=== PATIENT | male | born 1950 | race Asian ===

== ENCOUNTER 2021-08-22 08:27 | Outpatient (REF) | payer MEDICARE, SELFPAY ==
[2021-08-22 08:59] LABS: COVID-19 Test Negative (Negative)
== END 2021-08-22 08:28 | disposition home or self-care (01) ==
LOC: HO.LAB 08:27
PROVIDERS: PCP Internal Medicine; Visit Provider Internal Medicine
DX: Z20.822 Contact with and (suspected) exposure to COVID-19 (principal)
CPT/HCPCS: 36415; 87635; C9803

== ENCOUNTER 2024-03-07 16:45 | Emergency (ER) | payer MEDICARE, SELFPAY ==
--- NOTE | ~2024-03-07 | CT_ITS ---
EXAMINATION: CT KNEE WITHOUT CONTRAST, RIGHT CLINICAL INFORMATION: Question plateau fracture COMPARISON: None available. TECHNIQUE: Axial imaging. Sagittal and coronal reconstructions. This CT examination was performed using dose optimization techniques as appropriate, variously including the following: *Automated exposure control *Adjustment of mA and/or kV according to patient size (this includes techniques or standardized protocols for targeted exams where dose is matched to indication/reason for exam; i.e. extremities or head) *Use of iterative reconstruction technique DLP: 195 mGy-cm FINDINGS: Diffuse bone demineralization. Severe medial compartment arthritis, joint space loss, osteophytes, sclerosis. Moderate patellofemoral and lateral compartment arthritis. There are multiple ossifications in the anterior intercondylar region. These appear corticated, suggestive of a nonacute process. This could be related to loose bodies, sequela of remote trauma. No acute fracture plane is identified in the visualized bones. No definitive tibial plateau fracture is seen. Moderate joint effusion. Multiple loose bodies present. The quadriceps and patellar tendon are grossly intact. No measurable muscle tear is identified, however evaluation is limited by CT. Limited evaluation of the ligaments by CT. In particular,, the ACL is not clearly visualized. There is subcutaneous edema present. CT/CT knee RT wo IV con IMPRESSION: *Advanced tricompartment osteoarthritis. *Bones are osteopenic limiting evaluation. No fracture plane is identified by CT. *Ossifications in the anterior intercondylar region, suspected to be nonacute. This may reflect sequela of remote injury or loose bodies. *Moderate joint effusion. Multiple loose bodies. *If there is clinical concern for radiographically osseous osseous injury or intra-articular derangement, consider MRI.
--- NOTE | ~2024-03-07 | MR_ITS ---
EXAMINATION: MR LUMBAR SPINE WITHOUT CONTRAST CLINICAL INFORMATION: Status post fall, concern for cauda equina syndrome COMPARISON: MRI lumbar spine 10/16/2008. TECHNIQUE: MRI of the lumbar spine was obtained using routine sequences without contrast. FINDINGS: Normal lumbar lordosis is preserved. 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 Vertebral body heights are maintained. There is no suspicious osseous lesion. Disc desiccation, most pronounced at L5-S1 with preserved disc height. Level by level detail as follows: L1-L2: No spinal canal or neural foraminal stenosis. L2-L3: Mild bilateral facet hypertrophy. Trace annular disc bulge. No spinal canal stenosis. Stable minimal neural foraminal encroachment. L3-L4: Increased size of right eccentric annular disc bulge. Mild bilateral facet arthrosis. Stable minimal spinal canal narrowing. Increased moderate bilateral neural foraminal stenosis with impingement upon the exiting right greater than left L3 nerve roots. L4-L5: Annular disc bulge with redemonstrated left foraminal disc protrusion and associated annular fissure. New ventral annular fissure. Mild bilateral facet arthrosis and ligamentum flavum thickening. Slightly increased mild to moderate spinal canal and subarticular zone narrowing. Similar mild to moderate left neural foraminal stenosis with mild right neural foraminal narrowing. L5-S1: Posterior disc uncovering and moderate bilateral facet arthrosis with ligamentum flavum thickening. Increased mild spinal canal and severe bilateral subarticular zone narrowing with impingement upon the traversing right greater than left S1 nerve roots. Similar severe right neural foraminal stenosis with compression of the exiting right L5 nerve root and mild left neural foraminal stenosis. The conus medullaris terminates at the level of L1-L2. The distal spinal cord is normal in appearance. No epidural fluid collection, hematoma, or mass. No significant abnormalities of the paraspinal musculature. Bilateral appearing renal cysts not requiring further imaging follow-up. The abdominal aorta is of normal contour and caliber. MR/MR lumbar spine wo con IMPRESSION: 1. No evidence of acute traumatic injury in the lumbar spine nor evidence of cauda equina syndrome. 2. 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 3. At L5-S1, increased mild spinal canal and severe bilateral subarticular zone narrowing with impingement upon the traversing right greater than left S1 nerve roots. Similar severe right neural foraminal stenosis with compression of the exiting right L5 nerve root. 4. At L4-L5, slightly increased mild to moderate spinal canal and subarticular zone narrowing. Similar mild to moderate left neural foraminal stenosis. 5. At L3-L4, increased moderate bilateral neural foraminal stenosis with impingement upon the exiting right greater than left L3 nerve roots.
--- NOTE | 2024-03-07 16:58 | ED.FALL ---
HPI - Fall General Chief Complaint: Fall Stated Complaint: fell and hurt back Time Seen by Provider: 03/07/24 16:46 Source: patient Mode of arrival: ambulatory Limitations: no limitations History of Present Illness ED Provider: danita HPI Narrative: Patient's history of chronic low back pain stable not requiring any pain medication apparently was getting box of grocery the garage lost balance and fell yesterday complaining of increased pain in the lower back and also complaining of pain in the right knee with swelling using a cane for ambulation patient also does have a chronic knee pain in the past Related Data Allergies Allergy/AdvReac Type Severity Reaction Status Date / Time aspirin Allergy Unknown Unknown Verified 03/07/24 17:30 Review of Systems Review of Systems: Yes all other systems are reviewed and are negative [facility] Social History Social History Smoked in Last 30 Days: No Advance Directives: No Advance Directives Information Provided: No Physical Exam Vital Signs: Vital Signs: Last Vital Signs Temp 99.2 F 03/07/24 22:15 Pulse 88 03/07/24 22:15 Resp 13 03/07/24 22:15 BP 128/67 03/07/24 22:15 Pulse Ox 97 03/07/24 22:15 O2 Del Method Room Air 03/07/24 22:15 BMI result Body Mass Index 27.4 Appearance: Alert. Oriented X3. No acute distress. ENT: Pharynx normal. Oral Mucosa moist Neck: Normal inspection. Neck supple. CVS: Normal heart rate and rhythm. Pulses normal. Respiratory: No respiratory distress. Equal air entry bilateral, no wheezing/rales/rhonchi Abdomen: Soft and nontender. Bowel sounds are present, no mass palpable, no CVA tenderness Skin: Skin warm and dry. Normal skin color. Normal skin turgor. Back: Diffuse tenderness lumbar spinal area with SLR positive at 45 sacral sensations intact Extremities: No lower extremity edema. No calf tenderness right knee:effusion+ medial joint line tenderness+ Filipe's positive+ Neuro: Oriented X 3. No motor deficit. No sensory deficit.No cerebellar signs , cranial nerves II-XII intact Medical Decision Making Medical Decision Making MDM Narrative: Patient with significant lumbar canal stenosis findings and right knee arthritis advised to follow with orthopedic Independent Interpretation I performed an independent interpretation of an: CT Scan Radiology Impression Discussion of test interpretation with radiology: I have reviewed the radiologist's reading. Radiologist Impression: MR/MR lumbar spine wo con IMPRESSION: 1. No evidence of acute traumatic injury in the lumbar spine nor evidence of cauda equina syndrome. 2. 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 3. At L5-S1, increased mild spinal canal and severe bilateral subarticular zone narrowing with impingement upon the traversing right greater than left S1 nerve roots. Similar severe right neural foraminal stenosis with compression of the exiting right L5 nerve root. 4. At L4-L5, slightly increased mild to moderate spinal canal and subarticular zone narrowing. Similar mild to moderate left neural foraminal stenosis. 5. At L3-L4, increased moderate bilateral neural foraminal stenosis with impingement upon the exiting right greater than left L3 nerve roots. [place] [id number] CT Scan Report Signed Patient: Bradly García MR#: [id number] : 1950 Acct:[id number] Age/Sex: 73 / M ADM Date: 03/07/24 Loc: .ED Attending Dr: Ordering Physician: Sam Jaeger MD Date of Service: 03/07/24 Procedure(s): CT knee RT wo IV con Accession Number(s): [id number] cc: Marquis Singh; Sam Jaeger MD~ EXAMINATION: CT KNEE WITHOUT CONTRAST, RIGHT CLINICAL INFORMATION: Question plateau fracture COMPARISON: None available. TECHNIQUE: Axial imaging. Sagittal and coronal reconstructions. This CT examination was performed using dose optimization techniques as appropriate, variously including the following: *Automated exposure control *Adjustment of mA and/or kV according to patient size (this includes techniques or standardized protocols for targeted exams where dose is matched to indication/reason for exam; i.e. extremities or head) *Use of iterative reconstruction technique DLP: 195 mGy-cm FINDINGS: Diffuse bone demineralization. Severe medial compartment arthritis, joint space loss, osteophytes, sclerosis. Moderate patellofemoral and lateral compartment arthritis. There are multiple ossifications in the anterior intercondylar region. These appear corticated, suggestive of a nonacute process. This could be related to loose bodies, sequela of remote trauma. No acute fracture plane is identified in the visualized bones. No definitive tibial plateau fracture is seen. Moderate joint effusion. Multiple loose bodies present. The quadriceps and patellar tendon are grossly intact. No measurable muscle tear is identified, however evaluation is limited by CT. Limited evaluation of the ligaments by CT. In particular,, the ACL is not clearly visualized. There is subcutaneous edema present. CT/CT knee RT wo IV con IMPRESSION: *Advanced tricompartment osteoarthritis. *Bones are osteopenic limiting evaluation. No fracture plane is identified by CT. *Ossifications in the anterior intercondylar region, suspected to be nonacute. This may reflect sequela of remote injury or loose bodies. *Moderate joint effusion. Multiple loose bodies. *If there is clinical concern for radiographically osseous osseous injury or intra-articular derangement, consider MRI. Discharge Plan Discharge Clinical Impression: Low back derangement syndrome, Knee derangement syndrome Patient Disposition: Home, Self-Care Instructions: Acute Low Back Pain (ED), Swollen Knee Joint (ED) Additional Instructions: Rest ,avoid going upstairs Tylenol/Motrin for pain Follow up with orthopedic Referrals: Christopher Evangelista MD [Physician] - 1 week Interventions: ED Discharge Assessment Last Done: 03/07/24 21:34 Discharge Date/Time: 03/07/24 21:34 Print Language: Micronesian
[2024-03-07 17:02] VITALS: BP 138/82; PULSE 48; RESP 16; TEMP 36.3; O2SAT 99
[2024-03-07 17:25] VITALS: BP 138/82; PULSE 49; RESP 16; TEMP 36.3; O2SAT 99; BMI 27.4
--- NOTE | 2024-03-07 17:40 | PC.NURSE ---
PT WQAS EVALAUATED BY DR CALHOUN AND WAS MADE AWARE OF THE ED CARE PLAN. PT IS AWAITING RADIOLOGY STUDIES
[2024-03-07 19:44] VITALS: BP 138/74; PULSE 41; RESP 16; TEMP 36.3; O2SAT 99
[2024-03-07 21:27] VITALS: BP 154/82; PULSE 41; RESP 18; TEMP 36.3; O2SAT 100
[2024-03-07 21:34] VITALS: BP 154/82; PULSE 41; RESP 18; TEMP 36.3; O2SAT 100
[2024-03-07 22:15] VITALS: BP 128/67; PULSE 88; RESP 13; TEMP 37.3; O2SAT 97
== END 2024-03-07 21:34 | disposition home or self-care (01) ==
PROVIDERS: Emergency Provider Internal Medicine; PCP Internal Medicine
DX: M53.87 Other specified dorsopathies, lumbosacral region (principal); M23.91 Unspecified internal derangement of right knee; M25.561 Pain in right knee
CPT/HCPCS: 72148; 73700; 99284; 99285

== ENCOUNTER 2024-07-21 11:52 | Day surgery (SDC) | payer MEDICARE, SELFPAY ==
[2024-07-17 14:30] VITALS: BMI 27.3
[2024-07-21] MEDS: Lactated Ringers 1,000 ML 80 ML IVCONT (13:08)
[2024-07-21 13:16] VITALS: BP 149/76; PULSE 46; RESP 18; TEMP 36.8; O2SAT 97
--- NOTE | 2024-07-21 15:15 | P.CONAN_ITS ---
HPI - Anesthesia Eval Consult details Narrative: 74 yo male patient for EGD [facility] Active Problems Active Problems: HTN GERD Hyperlipidemia BPH Past Medical History Medical History Elevated cholesterol GERD (gastroesophageal reflux disease) BPH (benign prostatic hyperplasia) HTN (hypertension) Family History Family history of problems with anesthesia: No Surgical History Surgical History Hx of sinus surgery History of esophagogastroduodenoscopy (EGD) H/O colonoscopy History of Problems with Anesthesia: No Social History Social History Household Members: Spouse Are you a primary critical care physician to a significant other at home: No Do you presently have visiting nurse or other home services: No Patient Tobacco Use Status: Never used Tobacco Have you been hit, kicked, punched, or otherwise hurt by someone within the past year? If so, by whom?: No Are you DNR?: No Advance Directives: No Advance Directives Information Provided: Yes Recently lost weight without trying: No Nutrition Risks: No Nutritional Risk Meds Allergies Allergy/AdvReac Type Severity Reaction Status Date / Time No Known Allergies Allergy Verified 07/21/24 12:58 Active Medications: Current Medications Lactated Ringer's (Lr) 1,000 mls @ 80 mls/hr IVCONT .G12H89H VICTOR MANUEL Last Admin: 07/21/24 13:08 Dose: 80 mls/hr Home Medications ?Medication ?Instructions ?Recorded ?Confirmed ?Last Taken ?Type aspirin 81 mg tablet,delayed 81 mg PO DAILY 07/17/24 07/17/24 07/14/24 History release atenolol 25 mg tablet 25 mg PO DAILY 07/17/24 07/17/24 07/21/24 History pantoprazole 20 mg tablet,delayed 20 mg PO DAILY 07/17/24 07/17/24 Unknown History release rosuvastatin 20 mg tablet 20 mg PO DAILY 07/17/24 07/17/24 Unknown History tamsulosin 0.4 mg capsule 0.4 mg PO DAILY 07/17/24 07/17/24 Unknown History valsartan 160 mg tablet 160 mg PO DAILY 07/17/24 07/17/24 07/21/24 History Exam Height,Weight and Vital Signs: Height 5 ft 7 in Weight 79.152 kg Last Vital Signs Temp 98.2 F 07/21/24 13:16 Pulse 46 L 07/21/24 13:16 Resp 18 07/21/24 13:16 BP 149/76 H 07/21/24 13:16 Pulse Ox 97 07/21/24 13:16 O2 Del Method Room Air 07/21/24 13:16 Airway Mallampati Class: II TM Dist: >3cm Neck ROM: Full Loose/Missing/Broken Teeth: No Heart: RRR Lungs: CTAB Assessment and Plan Assessment Anesthesia Assessment: Anesthesia Plan Discussed and Chart Reviewed Final Anesthetic Review Family History of Problems with Anesthesia: No History of Problems with Anesthesia: No NPO: Yes ASA Class: II Final Preanesthetic Review: No Changes in Pt Med Stat, Meds/Allgs Chart Reviewed, Consent Obtained/Reviewed and Anes Risks/Benef Reviewed Patient Risk: Low Procedure Risk: Low Assessment/Block/Sedation in SS: Assess/Block/Sedation-SS Anesthetic Plan Anesthetic Plan: TIVA Disposition: Standard PACU
[2024-07-21 16:00] VITALS: BP 102/62; PULSE 47; RESP 12; TEMP 36.2; O2SAT 99
--- NOTE | 2024-07-21 16:01 | PM.OP ---
Brief Operative Note Date of Service: 07/21/24 Pre-op diagnosis: GERD, Elise's Post-op diagnosis: other (Same, Hiatal hernia) Procedure: EGD with biopsies Surgeon: Gigi Chong MD Anesthesia: MAC Was an Nursery Laborer used for this Procedure?: No Estimated blood loss (mL): 2.0 Pathology: other (A. Esophagus 36-37cm B. Gastric antrum) Condition: stable Disposition: PACU
[2024-07-21 16:15] VITALS: BP 108/73; PULSE 72; RESP 0; TEMP 36.2; O2SAT 100
--- NOTE | 2024-07-22 02:08 | OP_ITS ---
DATE OF SERVICE: 07/21/2024 SURGEON: Gigi Chong MD INDICATIONS: The patient presents for evaluation of chronic reflux and history of Elise esophagus. Full consent has been obtained from him for this, including risks of bleeding and perforation. PREOPERATIVE DIAGNOSIS: POSTOPERATIVE DIAGNOSIS: PROCEDURE PERFORMED: Esophagogastroduodenoscopy with biopsies. ESTIMATED BLOOD LOSS: COMPLICATIONS: ANESTHESIA: Monitored anesthesia care. ASSISTANTS: SPECIMENS: PREOPERATIVE DIAGNOSES: Gastroesophageal reflux and history of Elise esophagus. POSTOPERATIVE DIAGNOSES: Gastroesophageal reflux and history of Elise esophagus, hiatal hernia, gastritis. DESCRIPTION OF PROCEDURE: The patient was placed in the left lateral decubitus position. The Olympus video gastroscope was passed in the posterior oropharynx and upper esophagus under direct vision. The scope was passed slowly into the distal esophagus. The gastroesophageal junction appeared at 37 cm. Between 36 cm and 37 cm were small patches of what appeared to be Elise mucosa. There was no evidence of any esophagitis nor any lesions. The scope entered the stomach there was a small hiatal hernia. The scope was advanced to the pylorus, and the duodenum was cannulated to the descending portion. The duodenum including the bulb appeared normal without mass or ulceration. The scope was withdrawn back in the stomach. The gastric antrum and body had some changes of what appeared to be a mild chronic gastritis with some erythema and edema but no erosions nor ulceration. There was good peristalsis. Biopsies were obtained. The scope was retroflexed visualizing the proximal stomach carefully, which appeared normal, without any sign of mass or ulceration. The scope was straightened and withdrawn back to the esophagus. Multiple biopsies were obtained between 36 and 37 cm. Proximal to 36 cm, the esophageal mucosa appeared normal. The scope was withdrawn from the patient. He tolerated the procedure well and was returned to the recovery area in stable condition. IMPRESSION: 1. Hiatal hernia, gastroesophageal reflux, history of Elise esophagus. Rule out dysplasia. 2. Gastritis. PLAN: The results of the biopsies will be checked. He reports that he is presently doing well on his daily regimen of pantoprazole. I did advise him to continue this. A tissue specimen has also been sent for the Cypher study as well. He was advised not to use any aspirin or NSAIDs for 1 week. If the biopsies do not show dysplasia, then I would recommend a repeat upper endoscopy in 3 years given his otherwise good clinical health. He had been advised to let me know; if he wants to have a screening colonoscopy, although does report that a recent Cologuard test had been negative. MD ALEXI Velasquez/ALFIE / [phone]
== END 2024-07-21 16:26 | disposition home or self-care (01) ==
PROVIDERS: PCP Internal Medicine; Visit Provider Internal Medicine
PROC: 0DJ08ZZ Inspection of Upper Intestinal Tract, Via Natural or Artificial Opening Endoscopic (ICD-10-PCS; CPT 43235; principal; 2024-07-21 14:30)
DX: K22.70 Barrett's esophagus without dysplasia (principal); K21.9 Gastro-esophageal reflux disease without esophagitis; K29.60 Other gastritis without bleeding; K44.9 Diaphragmatic hernia without obstruction or gangrene; I10 Essential (primary) hypertension; N40.0 Benign prostatic hyperplasia without lower urinary tract symptoms; Z79.899 Other long term (current) drug therapy; Z79.82 Long term (current) use of aspirin; Z98.890 Other specified postprocedural states
CPT/HCPCS: 43239; 88305; 88313; 88342; J1596; J2003; J2704

== ENCOUNTER 2025-07-24 06:28 | Day surgery (SDC) | payer MEDICARE, SELFPAY ==
--- OUTSIDE RECORDS SUMMARY | 2016-11-09 01:00 | XMS_ITS | Encounter Summary ---
Author Organization [facility] Address [address] [address] Phone Care Team Providers Care Philosophy And Religion Instructor Name Role Phone Unavailable Primary Care Provider Unavailabl e Encounter Details Date Type Department Care Team ([facility] st Contact Info) Description 11/09/2016 Hospital Encounter [facility] OUTSIDE [address] [place] [id number] Nick Lebron MD [address] [place] [id number] [email or web address] Social History Tobacco Use Types Packs/Day Years Used Date Smoking Tobacco: Never Assessed Education Answer Date Recorded Are you interested in more education? Not on shelby e 02/03/2023 Are you concerned about learning? Not on file 02/03/2023 No 02/03/2023 No 02/03/2023 Digital Access Answer Date Recorded No 02/18/2023 No 02/18/2023 No 02/18/2023 Reliable internet access at home? Not on file 02/18/2023 Device with a working camera? Not on file Sex and Gender Information Value Date Recorded Sex Assigned at Male 09/26/2021 11:58 AM EST Legal Sex Male 2:49 PM EDT Gender Identity Male 09/26/2021 11:58 AM EST Sexual Orientation Straight 09/26/2021 11 :58 AM EST documented as of this encounter Plan of Treatment Not on file documented as of this encounter Procedures Procedure Name Priority Date/Time Associated Diagnosis Comments CT HEAD OUTSIDE (NO INTERPRETATION) Routine 11/09/2016 12:00 AM EST documented in this encounter Results * CT Head Outside (No Interpretation) (11/09/2016 12:00 AM EST) Narrative [facility] INTERFACES - 10/03/2021 9:41 AM EST This study is for PACS storage only and not for interpretation. us Nick Lebron MD IMG OUTSIDE IMAGING W/OUT I NTERPRETATION Final Result [facility] INTERFACES documented in this encounter Visit Diagnoses Not on filedocumented in this encounter Additional Source Comments The information contained in this document represents components of the legal health record. It is not the complete legal health record.[facility]
--- OUTSIDE RECORDS SUMMARY | 2024-07-21 10:20 | XMS_ITS ---
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 Problem Gastro-esophagea l reflux disease without esophagitis (110198297) Gastro-esophage al reflux disease without esophagitis (K21.9) Active confirmed Problem Gastritis (8982306) Gastritis (K29.70) Active confirmed Encounters Encounter Location Date Provider Diagnosis [facility] Outpatient [address] [place] [phone] 07/21/2024 Gigi Chong Gil''s esophag us without dysplasia K22.70 ; Hiatal hernia K44.9 ; Gastro-esophageal reflux disease without esophagitis K21.9 and Gastritis K29.70 Assessments Encounter Date Diagnosis (ICD Code) Assessment Notes Treatment Notes Treatment Clinical Notes Section Notes 07/21/2024 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 (ICD-10 - K22.70) 07/21/2024 Hiatal hernia (ICD-10 - K44.9) 07/21/2024 Gastro-esophagea l reflux disease without esophagitis (ICD-10 - K21.9) 07/21/2024 Gastritis (ICD-10 - K29.70) Plan Of Treatment Next Appt Details Provider Name:Gigi Chong , 07/24/2025 07:30:00 AM, [address] [place] [address] , [place], [place], [phone], Progress Notes * ROBYN FLORES MDOB:[birth year] (74 yo M)Acc No.[id number]:07/21/2024 EGD/MAC Patient: LEO MADRID MD Provider: Dick Chong MD :1950 A ge:74 Y S ex:Male Date:07/21/2024 Address:[address] [place], [place] [phone] Pcp:BOAZ CHARLES Subjective: * Chief Complaints: * 1 . Gil's. * Medical History: Objective: * Vitals: Assessment: * Assessment: 1. B arrett''s esophagus without dysplasia - K22.70 (Primary) 2 . H iatal hernia - K44.9 3 . G ronni-esophageal reflux disease without esophagitis - K21.9? 4. G astritis - K29.70 Plan: * Treatment: * Procedure Codes: 4 3239 UPPER GI ENDOSCOPY, BIOPSY, 3126F ESOPH BX RPRT W/DYSPL INFO * * The named appointment provid er may or may not be the originator of this progress note, and it is not deemed complete until electronically signed by the appointment provider. Sign off status: Pending * Provider: Dick Chong MD Date: Generated for Ga robles/Nick/Ruiitting on: 0 05/28/2025 01:37 PM EDT
--- OUTSIDE RECORDS SUMMARY | 2025-05-27 23:59 | XMS_ITS | Continuity of Care Document ---
Author Organization [facility] Address [address] [place] [phone]- Care Team Providers Care Publication Specialist Name Role Phone Samantha WORKMAN, Marquis Primary Care Physician [phone] Encounter [facility] Date(s): 04/27/25 - 05/27/25 [facility] [address] [place] [phone]- Attending Physician: Any Parikh Admitting Physician: Any Parikh Referring Physician: Any Parikh Encounter Type: Triage Allergies, Adverse Reactions, Alerts No Known Allergies Immunizations Given and Recorded Vaccine Date Status Refusal Reason Yellow Fever Vaccine 04/03/07 Given Medications Cipro 500 mg oral tablet 500 mg, 1, tablet, By Mouth, Every 12 hours, for severe diarrhea, # 6 tablet, 0 Refills Start Date: 04/03/07 Stop Date: 04/06/07 Status: Ordered Medication Dispense Status: Completed Quantity: 6.0 Unit: tablet Total Allowed Fills: 1 Fills Dispensed: 0 mefloquine 250 mg oral tablet 250 mg, 1, tablet, By Mouth, Every week, begin 2 weeks prior travel into [facility] area; take weekly and continue weekly for 4 weeks after leaving [facility], # 12, 0 Refills Start Date: 04/03/07 Status: Ordered Medication Dispense Status: Completed Quantity: 12.0 Unit: Total Allowed Fills: 1 Fills Dispensed: 0 typhoid vaccine, live oral enteric coated capsule one capsule, By Mouth, Every other day, # 4, 0 Refills Start Date: 04/03/07 Status: Ordered Medication Dispense Status: Completed Quantity: 4.0 Unit: Total Allowed Fills: 1 Fills Dispensed: 0 Social History Social History Type Response Sex Sex Representation Male (finding) Patient Care team information Care Team Personnel Name: Marquis Singh MD Position: [facility] Outreach Member Role: PCP Address: [address] [place] [address], [address] Telecom: Care Team Related Persons Name: STEVE FLORES Insurance Providers Guarantor name: LEO FLORES [facility] Plan Information #: 1 Payer: [facility] PPO Payer Identifier: NA Member Number: [id number] Group Number: [id number] Subscriber Identifier: NA Relationship to Subscriber: self Coverage Type: Medicare PPO Coverage Verification Date: NA Telecom: NA Address:
--- OUTSIDE RECORDS SUMMARY | 2025-05-28 13:37 | XMS_ITS | Patient Health Record ---
Author Organization [facility] Address [address] [place] [phone] Care Team Providers Care Aboriginal Education Worker Coordinator Name Role Phone BOAZ CHARLES Primary Care Provider Gigi Caba [phone] Allergies No Known Allergies Results Component Value Reference Range Notes Pathology Reviewed date:10/16/2024 03:10:26 PM Interpretation: Performing Lab:[address] [id number] Notes/Report: Pathology (Not yet reviewed by provider) Interpretation: Performing Lab:[address] [address] Notes/Report: Reason For Referral No Information Medications Medication SIG (Take, Route, Frequency, Duration) Notes Start Date End Date Status Tamsulosin HCl 0.4 MG Oral for 90 Active Pantoprazole Sodium 40 MG 1 tablet every morning Orally Once a day for 90 days Active Atenolol 25 MG half tablet Oral Onc e a day Active Valsartan 160 MG Oral for 90 A ctive Rosuvastatin Calcium 20 MG Oral for 90 Active Aspir-81 81 MG 1 tablet Orally Once a day Active Immunizations Vaccine Route Administration Date Status Comme nts Influenza Unknown 2018 Administered Problems Problem Type SNOMED Code ICD Code Onset Dates Problem Status W/U Status Risk Notes Problem Gastro-esophagea l reflux disease without esophagitis (897428397) Gastro-esophage al reflux disease without esophagitis (K21.9) Active confirmed Problem 651101334 Barretts esophagus without dysplasia (K22.70) Active confirmed Problem Gastritis (4679662) Gastritis (K29.70) Active confirmed Problem Elise esophagus (015188979) Elise esophagus (K22.70) Active confirmed Problem Elise's esophagus (229319074) 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) Active confirmed Vital Signs Blood pressure diastolic 00 mm Hg 06/17/2024 Height 67 in 06/17/2024 Blood pressure systolic 00 mm Hg 06/17/2024 Weight 174.5 lbs 06/17/2024 BMI 27.33 kg/m2 06/17/2024 Procedures Procedure Date Ordered Date Performed Result Body Sit e UPPER GI ENDOSCOPY 09/11/2024 N/A Encounters Encounter Location Date Provider Diagnosis [facility] [address] [place] [phone] 07/21/2024 Gigi Chong Elise''s esophagus without dysplasia K22.70 ; Hiatal hernia K44.9 ; Gastro-esophageal reflux disease without esophagitis K21.9 and Gastritis K29.70 [facility] [address] [place] [phone] 06/17/2024 Gigi Chong Barretts esophagus without dysplasia K22.70 [facility] [address] [place] [phone] 09/11/2024 Gigi Chong Elise esophagus K22.70 Assessments Encounter Date Diagnosis (ICD Code) Assessment Notes Treatment Notes Treatment Clinical Notes Section Notes 07/21/2024 Hiatal hernia (ICD-10 - K44.9) 07/21/2024 Elise''s esophagus without dysplasia (ICD-10 - K22.70) 06/17/2024 Barretts esophagus without dysplasia (ICD-10 - K22.70) Stop aspirin for 1 week before the upper endoscopy 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 He is not having any new nor worrisome GI complaints. I did recommend a followup upper endoscopy for GERD in regard to his Elise's esophagus given that his last exam was well over 3 years ago. We did review the rationale for that in regard to the theoretical increased risk esophageal cancer in patients with Elise's esophagus. Full consent was obtained for that, including risks of bleeding and perforation. The procedure will be done with monitored anesthesia care. He was advised to stop his aspirin for one week before the procedure. I did advise him to continue his daily pantoprazole as well. I did advise him that I would recommend a screening colonoscopy given his last exam being about 12 years ago. We did review his recent negative Cologuard test and I advised him that while this is felt to be a fairly good screening test, we do feel a colonoscopy would definitely be a better test to detect and remove polyps in regard to colorectal cancer prevention. Nonetheless, he has opted to hold off on the colonoscopy for the time being and will think about it perhaps for sometime next year. Dr. Flores was comfortable with this plan. Thank you again for allowing me to participate in Dr. Flores's care. I shall continue to keep you advised of his progress. 09/11/2024 Elise esophagus (ICD-10 - K22.70) 07/21/2024 Gastro-esophage al reflux disease without esophagitis (ICD-10 - K21.9) 07/21/2024 Gastritis (ICD-10 - K29.70) 06/17/2024 Other Think about having a colonoscopy. 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 He is not having any new nor worrisome GI complaints. I did recommend a followup upper endoscopy for GERD in regard to his Elise's esophagus given that his last exam was well over 3 years ago. We did review the rationale for that in regard to the theoretical increased risk esophageal cancer in patients with Elise's esophagus. Full consent was obtained for that, including risks of bleeding and perforation. The procedure will be done with monitored anesthesia care. He was advised to stop his aspirin for one week before the procedure. I did advise him to continue his daily pantoprazole as well. I did advise him that I would recommend a screening colonoscopy given his last exam being about 12 years ago. We did review his recent negative Cologuard test and I advised him that while this is felt to be a fairly good screening test, we do feel a colonoscopy would definitely be a better test to detect and remove polyps in regard to colorectal cancer prevention. Nonetheless, he has opted to hold off on the colonoscopy for the time being and will think about it perhaps for sometime next year. Dr. Flores was comfortable with this plan. Thank you again for allowing me to participate in Dr. Flores's care. I shall continue to keep you advised of his progress. Plan Of Treatment Pending Test Test Name Order Date UPPER GI ENDOSCOPY 09/11/2024 Pathology 07/21/2024 Future Test Test Name Order Date UPPER GI ENDOSCOPY 05/13/2015 UPPER GI ENDOSCOPY 08/23/2018 UPPER GI ENDOSCOPY 06/17/2024 Next Appt Details Provider Name:Gigi Chong , 07/24/2025 07:30:00 AM, [address] [place] [address] , [place], [place], [phone], Insurance Providers Payer Name Payer Address Payer Phone Subscriber Number Group Number Insured Name Patient Relationship to Insured Coverage Start Date Coverage End Date [facility] [address] [place], [place] [id number] [phone] [id number] MARK WORKMAN, [facility] Self - patient is the insured Medical (General) History Medical History History ICD Code Denies UT,DM,CVA,Lung disease,renal dise ase Negative colonoscopy approx. [address] [facility] [address] Bliss Negative screening colonosco py in July of 2012, other than some mild sigmoid diverticulosis and small internal hemorrhoids EGD 04/2015--small HH, small area of [place] ett's--no dysplasia Hypertension BPH Upper endoscopy in 11/2018 re vealed a small hiatal hernia, some mild esophagitis, and a small area of Elise's esophagus with biopsies negative for dysplasia Surgical History Surgery Date(Month/Year) sinus surgery 1985 & 1989 sinsu surgery 2016
--- OUTSIDE RECORDS SUMMARY | 2025-05-28 13:38 | XMS_ITS | Clinical Summary ---
Author Organization [facility] Address [address] [place] [phone] Phone Care Team Providers Care Bale Piler Name Role Phone Unknown, Unknown MD Primary Care Provider Unavai lable Allergies No known active allergies Medications budesonide (PULMICORT) 0.5 mg/2 mL nebulizer solution Add one vial to [employer] saline irrigation and irrigate nasally daily. 60 mL 2 2 Active Active Problems No known active problems Immunizations Immunization Administration Dates Next Due COVID-19 (Pre-07/16) Moderna Vaccine, mRNA, PF 06/07/2021,10/14/2020,09/16/2020 Social History Tobacco Use Types Packs/Day Years [...] Orientation Straight 09/26/2021 11 :58 AM EST Last Filed Vital Signs Vital Sign Reading Time Taken Comments Blood Pressure - - Pulse - - Temperature - - Respiratory Rate - - Oxygen Saturation - - Inhaled Oxygen Concentration - - Weight 79.4 kg (175 lb) 09/29/2021 1:09 PM EST Height 170.2 cm (5' 7 ) 09/29/2021 1:09 PM EST Body Mass Index 27.41 09/29/2021 1:09 PM EST Plan of Treatment Health Maintenance Due Date Last Done Comments Adult Td,Tdap Booster 1952 LIPID PANEL 1952 DEPRESSION SCREENING 1964 SMOKING Hx and SMOKELESS TOBACCO SCREENING 1965 HEPATITIS C SCREENING 1970 COLOGUARD 1997 COLONOSCOPY 1997 COLORECTAL CANCER SCREENING 1997 FIT TEST 1997 FOBT 1997 SIGMOIDOSCOPY 1997 VIRTUAL COLONOSCOPY 1997 PNEUMOCOCCAL VACCINES (50+ years) (1 of 1 - PCV) 2002 ZOSTER VACCINES (1 of 2) 2002 COVID-19 VACCINE (4 - 2023-2 5 season) 2024 06/07/2021, 10/14/2020, 09/16/2020 INFLUENZA VACCINE (#1) 2025 RSV VACCINE (1 - 1-dose 75+ series) 2027 HEPATITIS A VACCINES Aged Out No long er eligible based on patient's age to complete this topic HIB VACCINES Aged Out No longer eligi ble based on patient's age to complete this topic MENINGOCOCCAL VACCINES (ACWY) Aged Out No longer eligible based on patient's age to complete this topic MENINGOCOCCAL VACCINES (B) Aged Out N o longer eligible based on patient's age to complete this topic Medical Devices Not on file Insurance [employer] [place] MED[place] BLUE REPLACEMENT MEDICARE PPO [place]UE [place] [place] [address] MEDICARE PPO BLUE REPLACEMENT [facility] MEDICARE PPO BLUE REPLACEMENT [facility] MEDICARE PPO BLUE REPLACEMENT Care Teams Bale Piler Relationship Specialty Start Date End Date Unknown, Unknown, PCP - General 09/14/21 Additional Source Comments The information contained in this document represents components of the legal health record. It is not the complete legal health record.[facility]
--- OUTSIDE RECORDS SUMMARY | 2025-05-28 13:38 | XMS_ITS | Encounter Summary ---
Author Organization [facility] Address [address] [place] [address] Phone Care Team Providers Care Pit Hoist Operator Name Role Phone Unknown, Unknown Primary Care Provider Shante kraft Encounter Details Date Type Department Care Team (Late st Contact Info) Description 09/29/2021 Procedure Pass [facility] [address] [place] [address] [place] [address] Social History Tobacco Use Types Packs/Day Years Used Date Smoking Tobacco: Never Assessed Sex and Gender Information Value Date Recorded Sex Assigned at Male 09/26/2021 11:58 AM EST Legal Sex Male 2:49 PM EDT Gender Identity Male 09/26/2021 11:58 AM EST Sexual Orientation Straight 09/26/2021 11 :58 AM EST documented as of this encounter Plan of Treatment Not on file documented as of this encounter Visit Diagnoses Not on filedocumented in this encounter Care Teams Pit Hoist Operator Relationship Specialty Start Date End Date Unknown, Unknown, PCP - General 09/14/21 documented as of this encounter Additional Source Comments The information contained in this document represents components of the legal health record. It is not the complete legal health record.[facility]
--- NOTE | 2025-07-22 10:10 | HO.ANESPROP2 ---
Documented by User: Juliann Yang NP 07/22/25 10:13 HPI - Anesthesia Eval Consult details Narrative: 75yo M for Upper Endoscopy PMFSH Past Medical History Medical History Elevated cholesterol GERD (gastroesophageal reflux disease) BPH (benign prostatic hyperplasia) HTN (hypertension) Family History Family history of problems with anesthesia: No Surgical History Surgical History Hx of sinus surgery History of esophagogastroduodenoscopy (EGD) H/O colonoscopy History of Problems with Anesthesia: No Social History Social History Household Members: Spouse Are you a primary respiratory care instructor to a significant other at home: No Do you presently have visiting nurse or other home services: No Patient Tobacco Use Status: Never used Tobacco Use of substances other than those prescribed or required for medical reasons: No Advance Directives: No Advance Directives Information Provided: Yes Meds Allergies Allergy/AdvReac Type Severity Reaction Status Date / Time No Known Allergies Allergy Verified 07/21/24 12:58 Home Medications ?Medication ?Instructions ?Recorded ?Confirmed ?Last Taken ?Type aspirin 81 mg tablet,delayed 81 mg PO DAILY 07/17/24 07/22/25 07/14/24 History release atenolol 25 mg tablet 25 mg PO DAILY 07/17/24 07/24/25 07/24/25 History pantoprazole 20 mg tablet,delayed 20 mg PO DAILY 07/17/24 07/22/25 Unknown History release rosuvastatin 20 mg tablet 20 mg PO DAILY 07/17/24 07/22/25 Unknown History tamsulosin 0.4 mg capsule 0.4 mg PO DAILY 07/17/24 07/22/25 Unknown History valsartan 160 mg tablet 160 mg PO DAILY 07/17/24 07/22/25 07/21/24 History Assessment and Plan Assessment Anesthesia Assessment: Chart Reviewed Final Anesthetic Review Family History of Problems with Anesthesia: No History of Problems with Anesthesia: No Documented by User: Nori Veloz MD 07/24/25 07:37 PMFSH Past Medical History Medical History Elevated cholesterol GERD (gastroesophageal reflux disease) BPH (benign prostatic hyperplasia) HTN (hypertension) Surgical History Surgical History Hx of sinus surgery History of esophagogastroduodenoscopy (EGD) H/O colonoscopy Social History Social History Household Members: Spouse Are you a primary respiratory care instructor to a significant other at home: No Do you presently have visiting nurse or other home services: No Patient Tobacco Use Status: Never used Tobacco Use of substances other than those prescribed or required for medical reasons: No Advance Directives: No Advance Directives Information Provided: Yes Meds Allergies Allergy/AdvReac Type Severity Reaction Status Date / Time No Known Allergies Allergy Verified 07/21/24 12:58 Home Medications ?Medication ?Instructions ?Recorded ?Confirmed ?Last Taken ?Type aspirin 81 mg tablet,delayed 81 mg PO DAILY 07/17/24 07/22/25 07/14/24 History release atenolol 25 mg tablet 25 mg PO DAILY 07/17/24 07/24/25 07/24/25 History pantoprazole 20 mg tablet,delayed 20 mg PO DAILY 07/17/24 07/22/25 Unknown History release rosuvastatin 20 mg tablet 20 mg PO DAILY 07/17/24 07/22/25 Unknown History tamsulosin 0.4 mg capsule 0.4 mg PO DAILY 07/17/24 07/22/25 Unknown History valsartan 160 mg tablet 160 mg PO DAILY 07/17/24 07/22/25 07/21/24 History Exam Airway Mallampati Class: II TM Dist: >3cm Neck ROM: Full Loose/Missing/Broken Teeth: No Heart: RRR Lungs: CTA Assessment and Plan Assessment Anesthesia Assessment: Anesthesia Plan Discussed Final Anesthetic Review NPO: Yes ASA Class: II Final Preanesthetic Review: Meds/Allgs Chart Reviewed, Consent Obtained/Reviewed and Anes Risks/Benef Reviewed Patient Risk: Low Procedure Risk: Low Anesthetic Plan Anesthetic Plan: MAC: Disposition: Standard PACU
[2025-07-22 14:47] VITALS: BMI 27.3
[2025-07-24 06:37] VITALS: BMI 29.4
[2025-07-24] MEDS: Lactated Ringers 1,000 ML 100 ML IVCONT (06:49)
[2025-07-24 06:50] VITALS: BP 134/74; PULSE 42; RESP 16; TEMP 36.6; O2SAT 99
[2025-07-24 08:19] VITALS: BP 111/66; PULSE 58; RESP 15; TEMP 36.6; O2SAT 97
--- NOTE | 2025-07-24 08:21 | P.BOP_ITS ---
Brief Operative Note Date of Service: 07/24/25 Pre-op diagnosis: Elise's with indefinite dysplasia Post-op diagnosis: other (Same, Hiatal hernia, R/O dysplasia) Procedure: EGD with biopsies, WATS Brushings, and Cypher study Surgeon: Gigi Chong MD Anesthesia: MAC Was an Biometric Fingerprinting Technician used for this Procedure?: No Estimated blood loss (mL): 2.0 Pathology: other (A. Esophagus 36-37cm) Condition: stable Disposition: PACU
[2025-07-24 08:34] VITALS: BP 118/67; PULSE 49; RESP 16; TEMP 36.1; O2SAT 97
--- NOTE | 2025-07-24 09:28 | OP_ITS ---
DATE OF SERVICE: 07/24/2025 SURGEON: Gigi Chong MD INDICATIONS: The patient presents for evaluation of Elise esophagus with indefinite dysplasia. Full consent has been obtained for this, including risks of bleeding and perforation. PREOPERATIVE DIAGNOSIS: Elise's esophagus with indefinite dysplasia. POSTOPERATIVE DIAGNOSIS: PROCEDURE PERFORMED: Esophagogastroduodenoscopy with biopsies, brushings for WATS study, and Cypher study. ESTIMATED BLOOD LOSS: COMPLICATIONS: ANESTHESIA: Medication used, monitored anesthesia care. ASSISTANTS: SPECIMENS: POSTOPERATIVE DIAGNOSES: Elise's esophagus with indefinite dysplasia, hiatal hernia. DESCRIPTION OF PROCEDURE: The patient was placed in the left lateral decubitus position. The Olympus video gastroscope was passed in the posterior oropharynx and upper esophagus under direct vision. The scope was passed slowly to the distal esophagus. The gastroesophageal junction appeared at 37 cm. Between 36 and 37 cm were small areas of Elise's appearing mucosa. There was no esophagitis nor any lesions. The scope entered the stomach. There was a small hiatal hernia. The scope was advanced to the pylorus and the duodenum was cannulated to the descending portion. The duodenum including the bulb appeared normal without mass or ulceration. The scope was withdrawn back in the stomach. The gastric antrum and body appeared normal with good peristalsis. The scope was retroflexed visualizing the proximal stomach carefully, which appeared normal, without any sign of mass or ulceration. The scope was straightened and withdrawn back to the esophagus. Multiple biopsies were obtained between 36 and 37 cm from the areas of Elise's appearing mucosa. I then obtained brushings for the WATS test. Proximal to 36 cm, the esophageal mucosa appeared normal. The scope was withdrawn from the patient. He tolerated the procedure well and was returned to the recovery area in stable condition. IMPRESSION: 1. Elise's esophagus, rule out dysplasia. 2. Hiatal hernia. PLAN: The results of the pathology will be checked. Of note, a specimen has also been sent for a Cypher study. The results of the biopsies in regard to dysplasia will determine the timing of the next upper endoscopy. He was advised to continue his daily pantoprazole 40 mg daily. This has been discussed with his . MD ALEXI Velasquez/ALFIE / [id number] [facility]
== END 2025-07-24 08:54 | disposition home or self-care (01) ==
PROVIDERS: PCP Internal Medicine; Visit Provider Internal Medicine
PROC: 0DJ08ZZ Inspection of Upper Intestinal Tract, Via Natural or Artificial Opening Endoscopic (ICD-10-PCS; CPT 43235; principal; 2025-07-24 07:30)
DX: K22.70 Barrett's esophagus without dysplasia (principal); K44.9 Diaphragmatic hernia without obstruction or gangrene
CPT/HCPCS: 43239; 88305; J2003; J2704; J3010